=== PATIENT | female | born 1970 | race Caucasian/White ===

== ENCOUNTER 2022-12-25 12:38 | Inpatient (IN) ==
[2022-12-25 13:27] LABS: Hematocrit (blood only) 41.3 % (37.0-47.0); Hemoglobin 13.3 g/dl (12.0-16.0); Mean Corpuscular Hemoglobin 25.9 pg (25.0-34.0); Mean Corpuscular Hgb Conc 32.2 g/dL (32.0-36.0); Mean Corpuscular Volume 80.5 fL (80.0-100.0); Mean Platelet Volume 9.8 fL (9.4-12.4); Platelet Count 481 K/uL (130-400); RDW Coefficient of Variation 14.4 % (11.5-14.5); RDW Standard Deviation 41.8 fL (36.4-46.3); Red Blood Count 5.13 M/uL (4.20-5.40); White Blood Count 13.28 K/ul (4.8-10.8)
[2022-12-25 13:43] LABS: Albumin Globulin Ratio 1.2 (0.9-2); Albumin Level 4.6 gm/dl (3.4-5.0); BUN Creatinine Ratio 10.3 (10-20); Bilirubin,Total 0.5 mg/dl (0.2-1.0); Creatinine Clr Calc Pharmacy 111.3 ml/min; Est GFR (African American) 117.4 ml/min; Est GFR (Non-African American) 101.3 ml/min; Globulin 3.7 gm/dl (2.5-4.0); Magnesium 1.9 mg/dl (1.7-2.4); Potassium 3.9 mmol/L (3.5-5.1); Total Protein 8.3 gm/dl (6.0-8.3)
[2022-12-25 13:49] LABS: Partial Thromboplastin Ratio 1.1; Partial Thromboplastin Time 30.1 Seconds (21.0-31.0); Prothrombin Time 10.2 Seconds (9.0-12.0)
--- NOTE | 2022-12-25 14:21 | Emergency Department Note ---
Impression & Plan Cerebrovascular accident (CVA) of right pontine structure ED Provider Note NAME: VÍCTOR NARAYAN AGE: 52 SEX: F : 1970 ARRIVES VIA: Walk-In INFORMANT: Patient, ED PROVIDER(S): Osmany Calderón DO CHIEF COMPLAINT: Strokelike symptoms HPI: The patient is a 52-year-old female with a history of diabetes as well as hypertension who presented to the emergency department for an evaluation of strokelike symptoms. The patient started having symptoms on Thursday of this week. She initially started noticing difficulty speaking with slurred speech but then difficulty using her left upper extremity. The patient denies having any headache or vomiting. She denies having any abdominal pain. The patient states that she has no history of stroke. She does have a history of diabetes and hypertension. She also notes that she has been having trouble ambulating. Her speech has returned to normal but she continues to have trouble with her le ft upper extremity especially fine motor. She went to see her family doctor today and was sent for an MRI. After she had the MRI she was told to come to the emergency department to have the results. ROS: See above HPI for pertinent positives & negatives. A total of 10 systems reviewed and were otherwise negative. PAST MEDICAL HISTORY: See Below PAST SURGICAL HISTORY: See Below FAMILY HISTORY: See Below SOCIAL HISTORY: See Below HOME MEDICATIONS: See Below ALLERGIES: See Below VITALS: See Below PHYSICAL EXAMINATION: GENERAL: Patient is awake alert in no acute distress patient is resting comfortably and showing no signs of anxiety EYES: The conjunctivae are clear. The pupils are round and reactive. EARS, NOSE, MOUTH AND THROAT: The nose is without any evidence of any deformity. Mucous membranes are moist. Tongue is midline. NECK: The neck is nontender and supple. RESPIRATORY: Normal respiratory effort is noted there is no evidence of wheezing rhonchi or rales CARDIOVASCULAR: Regular rate and rhythm noted there no murmurs rubs or gallops normal S1 normal S2. GASTROINTESTINAL: The abdomen is soft. Abdomen is nontender. MUSCULOSKELETAL/EXTREMITIES: There is no evidence of gross deformity full range of motion is noted in the hips and shoulders. SKIN: There is no obvious evidence of any rash. There are no petechiae, pallor or cyanosis noted. NEUROLOGIC: Patient is awake alert and oriented x3. Speech was pressured but clear. There is no facial droop. Lath Hand strength was diminished in the left upper extremity. The patient is able to hold each leg off the bed for greater than 5 seconds. MEDICAL DECISION MAKING: The patient is a 52-year-old female who has a history of diabetes and hypertension who presented to the emergency department for an evaluation of strokelike symptoms. The patient has been experiencing symptoms over the last 3 days. The patient states his symptoms were worse at onset but continued today so she went to see her family doctor. When she was seen by her family doctor she was sent for an emergency MRI at [facility]. The patient was told by the radiologist to go directly to the emergency department to receive her results. The patient's history and physical exam do appear to be consistent with a stroke which was confirmed on MRI of the brain. I was able to review the patient's MRI report. I discussed the patient's laboratory and radiographic studies with her. She was in sinus rhythm. Her blood pressure was acceptable given her subacute ischemic stroke. I discussed her condition with the on-call [facility] hospitalist group. Triage Nursing notes reviewed. Prior medical records reviewed Vital Signs: reviewed and remarkable for elevated blood pressure. Differential diagnosis: Infection, dehydration, metabolic abnormality, hypo/hyperglycemia, electrolyte disturbance, anemia, hypoxia, cardiac sources, intracerebral event, toxicologic, neurologic, as well as other pathologies. ER treatment provided: See below Diagnostics interpreted by me: ECG: EKG was obtained in the emergency department. My interpretation is sinus tachycardia 106 bpm. There is no ectopy. LVH was noted by voltage criteria. This was compared to a tracing from March 24, 2016. No changes were noted. Cardiac Monitoring: An order was placed for continuous cardiac monitoring. The monitor shows a rate of 95 bpm with sinus rhythm. Laboratory studies: As stated above and show below. Imaging studies: See below. Radiographic imaging was reviewed by myself Consultation(s): I discussed this case with Il[facility] hutton [facility] Past Med/Surg History Medical History Diabetes Hypertension Social History Smoking Status: Never smoker Feels Safe at Home: Yes Allergies Allergies Allergy/AdvReac Type Severity Reaction Status Date / Time latex Allergy Unknown skin Verified 03/14/16 04:32 irritation Home Meds Previous Rx's Medication Instructions Recorded LISINOPRIL (PRINIVIL) 1 tab PO DAILY 30 days #30 tabs 03/14/16 Results & Data (ED) Vital Signs Vital Signs - 24 hr 12/25/22 12:42 12/25/22 14:04 Temperature 37.5 C Temperature Source Skin Pulse Rate 118 H Pulse Rate [Apical] 95 H Pulse Rhythm Regular Pulse Strength Normal Respiratory Rate 20 22 Respiratory Effort / Characteristics Non-Labored Spontaneous Respiratory Depth Normal Normal Respiratory Pattern Regular Blood Pressure 208/127 H Blood Pressure [Left Arm] 158/96 H Blood Pressure Mean 154 Blood Pressure Mean [Left Arm] 116 Pulse Oximetry 96 97 Oxygen Delivery Method Room Air Room Air Sepsis Recent Fever Within 48 Hours No Sepsis New/Unexplained Change in Mental Status N/A Sepsis Action Taken by Nursing No Action Required Home Medications Current Medication List: was personally reviewed by me Laboratory Data Attestation: I reviewed the patient's lab results. 12/25/22 12:54 12/25/22 12:54 Lab Results 12/25/22 12/25/22 12/25/22 Range/Units 12:54 12:54 12:54 WBC 13.28 H (4.8-10.8) K/ul RBC 5.13 (4.20-5.40) M/uL Hgb 13.3 (12.0-16.0) g/dl Hct 41.3 (37.0-47.0) % MCV 80.5 (80.0-100.0) fL MCH 25.9 (25.0-34.0) pg MCHC 32.2 (32.0-36.0) g/dL RDW Std Deviation 41.8 (36.4-46.3) fL RDW Coeff of [place] 14.4 (11.5-14.5) % Plt Count 481 H (130-400) K/uL MPV 9.8 (9.4-12.4) fL PT 10.2 (9.0-12.0) Seconds INR 1.0 (0.9-1.1) APTT 30.1 (21.0-31.0) Seconds PTT Ratio 1.1 Sodium 138 (136-145) mmol/L Potassium 3.9 (3.5-5.1) mmol/L Chloride 104 (98-107) mmol/L Carbon Dioxide 25 (21-32) mmol/L Anion Gap 9 (3-11) BUN 7 (6-23) mg/dl Creatinine 0.68 (0.6-1.2) mg/dl Est Cr Clr Drug Dosing 111.3 ml/min Est GFR ( Amer) 117.4 ml/min Est GFR (Non-Af Amer) 101.3 ml/min BUN/Creatinine Ratio 10.3 (10-20) Glucose 128 H (70-99(Fasting)) mg/dl Calcium 10.0 (8.5-10.1) mg/dl Magnesium 1.9 (1.7-2.4) mg/dl Total Bilirubin 0.5 (0.2-1.0) mg/dl AST 17 (13-39) U/L ALT 21 (7-52) U/L Alkaline Phosphatase 86 (34-104) U/L Total Protein 8.3 (6.0-8.3) gm/dl Albumin 4.6 (3.4-5.0) gm/dl Globulin 3.7 (2.5-4.0) gm/dl Albumin/Globulin Ratio 1.2 (0.9-2) Imaging Data Attestation: I personally reviewed and interpreted this imaging study as follows: My Impression: 1 view chest x-ray was obtained in the emergency department. My interpretation is cardiomegaly, no definite Lutrate, no free air, final report pending. Discharge Plan Visit Data Chief Complaint: Abnormal Labs/Diagnostic Testing Stated Complaint: REF BY DOC,ABNORMAL MRI ED Provider: Osmany Calderón Discharge Problem: Cerebrovascular accident (CVA) of right pontine structure Patient Disposition: Being Evaluated by Hospitalist Forms Stand Alone Forms: My [facility] Prescriptions Prescriptions: No Action LISINOPRIL (PRINIVIL) 10 MG tablet 1 tab PO DAILY 30 Days Qty: 30 5RF Referrals Referrals: PCP,NO [Physician] -
[2022-12-25 14:43] LABS: C Reactive Protein 2.74 mg/dl (0-0.5)
--- NOTE | 2022-12-25 14:53 | History & Physical Report ---
Date of Service December 25, 2022 Assessment & Plan (1) Cerebrovascular accident (CVA) of right pontine structure: Plan: Admit to telemetry Patient presenting by referral of PCP after outpatient MRI showed small acute/early subacute infarcts in the right aspect of the mason. Continues to have mild left arm and hand weakness. Risk factors: DM, HTN, obesity Check CTA head and neck Echo Patient has been taking ASA 81 mg daily for the past few years, therefore will add Plavix 75 mg if no bleeding on CTA. Also start atorvastatin 40 mg. Obtain hypercoagulable work-up given patient's age. Also note mild thrombocytosis, platelet 481K PT/OT Neurology consult, Dr. Forde notified via tiger text (2) Leukocytosis: Plan: WBC 13 K, CRP 2.7, ESR 46 May be reactive, no signs of infection at this time Continue to trend (3) Hypertension: Plan: Continue amlodipine and losartan, make adjustments as needed (4) Diabetes: Plan: Hgb A1c 6.3 06/2022 Hold oral agents and utilize NovoLog per protocol while hospitalized DVT PROPHYLAXIS SCDs I spent a total of 75 minutes coordinating, documenting, and providing care for this patient excluding time spent in the performance of separately billed services. This included personally reviewing all current laboratories and imaging studies, medication reconciliation, outpatient chart review, and discussion with specialists. History of Present Illness Chief Complaint: Left Arm Weakness, sent by PCP for stroke Primary Care Provider: Antonette Zimmerman PA-C 52 year old female with PMH HTN, DM type II, and other problems listed below who presents to the ED by referral PCP for evaluation of left arm weakness and after outpatient MRI showed acute/early subacute CVA. History obtained from patient by Dr. Bowman and my personal review of outpatient PCP records. Patient reports that 4 days ago she developed slurred speech, dizziness, left arm weakness. Reports that her coworkers noted that her speech was not normal. Patient reports slurred speech and dizziness has resolved however mild left arm and hand weakness persist. Patient was seen by her PCP today and had an outpatient MRI that showed small acute/early subacute infarcts in the right aspect of the mason. Patient sent to the ED for further evaluation. Patient denies chest pain and shortness of breath. No syncopal events. Denies any other recent illness, fevers, chills. No abdominal pain, nausea, vomiting, diarrhea. Denies urinary symptoms. In the ED, patient is hemodynamically stable and labs are unremarkable. Allergies Allergy/AdvReac Type Severity Reaction Status Date / Time latex Allergy Unknown skin Verified 03/14/16 04:32 irritation Home Medications Medication Instructions Recorded Confirmed Type amlodipine 5 mg tablet 5 mg PO DAILY 12/25/22 12/25/22 History aspirin 81 mg tablet 81 mg PO DAILY 12/25/22 12/25/22 History losartan 100 mg tablet 100 mg PO DAILY 12/25/22 12/25/22 History metformin 500 mg tablet,extended 1,000 mg PO BID 12/25/22 12/25/22 History release 24 hr semaglutide 2 mg/dose (8 mg/3 mL) 2 mg subcut WK 12/25/22 12/25/22 History subcutaneous pen injector (Ozempic) Past Med/Surg History Medical History Diabetes Hypertension Surgical History History of Family History Father Heart disease Mother Lymphoma Social History Smoking Status: Never smoker Hx Alcohol Use: Yes Hx Substance Use: No Preferred Language: Romanian Communication Ability: Effective Professor In Family Studies Required: No Beliefs That Will Affect Care: None Current Living Situation: Spouse Current Living Situation Comment: daughter Feels Safe at Home: Yes Assistive Devices: None Review of Systems Review of Systems: ROS per HPI, all other systems reviewed and negative Physical Exam Physical Exam: please refer to Dr. Bowman's addendum for physical exam Results & Data Results & Data Vital Signs (Past 12 Hours) Vital Signs Temp Pulse Pulse Resp BP BP Pulse Ox 12/25/22 14:04 95 H 22 158/96 H 97 12/25/22 12:42 37.5 C 118 H 20 208/127 H 96 O2 Del Method 12/25/22 14:04 Room Air 12/25/22 12:42 Room Air Laboratory Results Short CBC 12/25/22 Range/Units 12:54 WBC 13.28 H (4.8-10.8) K/ul Hgb 13.3 (12.0-16.0) g/dl Hct 41.3 (37.0-47.0) % Plt Count 481 H (130-400) K/uL BMP 12/25/22 12:54 Sodium 138 Potassium 3.9 Chloride 104 Carbon Dioxide 25 BUN 7 Creatinine 0.68 Glucose 128 H Calcium 10.0 Liver Function 12/25/22 Range/Units 12:54 Total Bilirubin 0.5 (0.2-1.0) mg/dl AST 17 (13-39) U/L ALT 21 (7-52) U/L Alkaline Phosphatase 86 (34-104) U/L Albumin 4.6 (3.4-5.0) gm/dl Diagnostic Findings Chest X-Ray 12/25/22 12:46 XR chest 1V portable CLINICAL HISTORY: stroke alert COMPARISON STUDY: No previous studies for comparison. FINDINGS: Lung volumes are normal. Lungs are clear. There is no pneumothorax or pleural effusion. Cardiac size is normal. Mediastinal contours are normal. There is no evidence for pulmonary edema. IMPRESSION: No acute cardiopulmonary findings. ACT 112: Negative or not required by law. Electronically signed by: Matthew Rosario M.D. 12/25/2022 3:11 PM Code Status & VTE Plan VTE Prophylaxis Plan VTE Prophylaxis will be ordered: Yes Supervising Physician Co-Signing Physician Notes Patient is a 52-year-old female with history of hypertension, diabetes mellitus and other medical problems presents with history of left upper extremity weakness since Thursday. She had an outpatient MRI brain suggestive of subacute pontine CVA. Patient also states having slurred speech, dizziness which curre ntly resolved. Please review HPI for complete details of presentation. I personally reviewed imaging studies, blood work and EKG. Blood work suggestive of leukocytosis 13.28 K, platelet count 481 K, ESR 46, hypercoagulable work-up pending, glucose 128, CRP 2.74. Outpatient MRI reviewed. Physical Exam: Vitals signs as noted above General Appearance:Obese, no apparent distress Head: normocephalic, Atraumatic Eyes: normal inspection, EOMI Neck: supple, Trachea midline Respiratory/Chest: Normal breath sounds, CTA, No accessory muscle use Cardiovascular: S1, S2, No murmur Abdomen/GI:Soft, Non tender, Bowel sounds present Extremities/Musculoskeletal:normal inspection, no edema Neurologic/Psych:AAOX3, Left UE 4/5, Decreased extension of fingers on Left Skin: normal color, warm Patient is admitted for management of subacute pontine CVA. Will obtain CTA head and neck to monitor for any progression Echo, lipid panel, A1c Continue aspirin Added Plavix, Lipitor Neurochecks Neurology consulted Can continue antihypertensives as likely subacute CVA. Leukocytosis Likely reactive No obvious source of infection Monitor I personally reviewed the record. Patient is interviewed and examined at bedside. Patient's care is coordinated with Ilana Rasmussen SAND MIXER OPERATOR. Please refer to the documentation above for details of patient's presentation and for discussion of other issues.
--- NOTE | 2022-12-25 15:12 | XRay Report ---
XR chest 1V portable CLINICAL HISTORY: stroke alert COMPARISON STUDY: No previous studies for comparison. FINDINGS: Lung volumes are normal. Lungs are clear. There is no pneumothorax or pleural effusion. Car diac size is normal. Mediastinal contours are normal. There is no evidence for pulmonary edema. IMPRESSION: No acute cardiopulmonary findings. ACT 112: Negative or not required by law. Electronically signed by: Matthew Rosario M.D. 12/25/2022 3:11 PM
[2022-12-25] MEDS ORDERED: DEXTROSE 50% 50 ML SYRINGE IV PRN (16:14)
[2022-12-25] MEDS ORDERED: ACETAMINOPHEN 325 MG TAB PO PRN (16:14)
[2022-12-25] MEDS ORDERED: GLUCOSE 40% GEL 15 GM TUBE PO PRN (16:14)
[2022-12-25] MEDS ORDERED: GLUCOSE 10 TAB/TUBE PO PRN (16:14)
[2022-12-25] MEDS ORDERED: PHARMACIST DISCHARGE MED REC CONSULT PRN (16:14)
[2022-12-25] MEDS ORDERED: GLUCAGON FOR INJ 1 MG VIAL SQ PRN (16:14)
[2022-12-25] MEDS ORDERED: CARBOHYDRATES FOR HYPOGLYCEMIA PO PRN (16:14)
[2022-12-25] MEDS: ATORVASTATIN 40 MG TAB PO SCH (16:40)
--- NOTE | 2022-12-25 17:18 | Neurology Consultation ---
Date of Consultation December 25, 2022 Assessment & Plan (1) Ischemic stroke: Plan Neurology Consultation Assessment & Plan: Impression:pt with subacute pontine ischemic stroke with left arm dysmetria, otherwise stable and neurological intact. Recommendations: * Standard stroke work up as planned * Antiplatelet therapy: * DAPT: start for pts with ABCD2 score 4 or higher. ASA 81mg daily and Plavix 75mg daily. Continue DAPT for 21 days if found small vessel disease only or continue for 90 days if found to have intracranial large artery atherosclerosis.After DAPT, can continue single antiplatelet therapy. * Images: TTE with bubble. pending CTA head/neck. * no need for permissive HTN as her symptoms started 4 days ago. * If noted for large intracranial vessel stenosis, slow reduction of BP and allowing permissive HTN next 7-10 days. * Long-term SBP goal less than 130. * Plenty of hydration including IV fluid (use isotonic solution) . Avoid hypovolemia and hypotension. * Initiate DVT prevention therapy * Avoid hypoglycemia, serum glucose goal during hospitalization: 140-180 * Long-term HgA1c goal less than 7 * Start statin if not on it.Long-term LDL goal of less than 70. * Head of bed up 30 degree if possible. * Stroke education * Smoke cessation education if a smoker. * Telemetry monitoring.Please order MCOT (mobile cardiac outpatient telemetry) orICM (insertable library monitor) if never had senior care cardiac monitoring previously. And if found to have atrial flutter or fibrillation, should consider anticoagulation therapy if no contraindication. * Physical/occupational therapy and speech path evaluations. * otherwise, not much add at this point. if TTE and CTA head/neck comes back normal, pt likely can be discharged. Chart reviewed I have spent more than 50% educating patient about potential diagnosis and neurological evaluation and coordinating care with patient's treatment team. Total time spent: 80 min (this includes chart review and documentation) Dr. Denton Forde MD [facility] Neurology Chief Complaint: stroke HISTORY OF PRESENT ILLNESS:pt with 4 days ago having left arm dysmetria and weakness that is now much improved. had mri from outside facility and noted for small ischemic stroke on mason. pt currently doing well. Admission/Initial HPI:52 year old female with PMH HTN, DM type II, and other problems listed below who presents to the ED by referral PCP for evaluation of left arm weakness and after outpatient MRI showed acute/early subacute CVA. History obtained from patient by Dr. Bowman and my personal review of outpatient PCP records. Patient reports that 4 days ago she developed slurred speech, dizziness, left arm weakness. Reports that her coworkers noted that her speech was not normal. Patient reports slurred speech and dizziness has resolved however mild left arm and hand weakness persist. Patient was seen by her PCP today and had an outpatient MRI that showed small acute/early subacute infarcts in the right aspect of the mason. Patient sent to the ED for further evaluation. Patient denies chest pain and shortness of breath. No syncopal events. Denies any other recent illness, fevers, chills. No abdominal pain, nausea, vomiting, diarrhea. Denies urinary symptoms. In the ED, patient is hemodynamically stable and labs are unremarkable. Past Medical History: See chart Meds: See chart Social & Family History: See chart Review of Systems: Per HPI. No headache, eye, ear nose, throat problems; no wheezing, No orthopnea, no abdominal pain or vomiting, No pain in the body, no psychiatric,endocrine, hematological or cardiac complaints except as noted above. Physical Exam: General Statement: not in acute distress, well appearing Mental Status: Oriented fully. Normal comprehension, no neglect, Fluent speech, logical thought process, Visuo-spatial function was intact. No apraxia, no L/R confusion. Cranial Nerves: Visual escobar were full.PERRL.Extraocular movements were full with no nystagmus. Normal pursuit.Facial movements were symmetric.Hearing was grossly intact.Palate elevated symmetrically.Sternocleidomastoid and trapezius muscles were 5/5 and equal bilaterally.Tongue extended midline. Motor: Strength was 5/5 and equal bilaterally. Normal tone.There were no abnormal movements or pronator drift. Sensory:intact to touch bilaterally Coordination: moderate dysmetria of left arm. Reflexes: toes down b/l History of Present Illness Attending Physician: Carlos Bowman MD Allergies Allergy/AdvReac Type Severity Reaction Status Date / Time latex Allergy Unknown skin Verified 03/14/16 04:32 irritation Home Medications Medication Instructions Recorded Confirmed Type amlodipine 5 mg tablet 5 mg PO DAILY 12/25/22 12/25/22 History aspirin 81 mg tablet 81 mg PO DAILY 12/25/22 12/25/22 History losartan 100 mg tablet 100 mg PO DAILY 12/25/22 12/25/22 History metformin 500 mg tablet,extended 1,000 mg PO BID 12/25/22 12/25/22 History release 24 hr semaglutide 2 mg/dose (8 mg/3 mL) 2 mg subcut WK 12/25/22 12/25/22 History subcutaneous pen injector (Ozempic) Patient History Medical History Diabetes Hypertension Surgical History History of Family History Father Heart disease Mother Lymphoma Social History Smoking Status: Never smoker Hx Alcohol Use: Yes Hx Substance Use: No Preferred Language: Maldivian Communication Ability: Effective Supervisor Public Health Nursing Required: No Beliefs That Will Affect Care: None Current Living Situation: Spouse Current Living Situation Comment: daughter Feels Safe at Home: Yes Assistive Devices: None Results & Data Vital Signs (Past 12 Hours) Vital Signs Temp Pulse Pulse Resp BP BP Pulse Ox 12/25/22 16:24 36.7 C 93 H 17 154/90 H 96 12/25/22 15:45 93 H 12/25/22 14:04 95 H 22 158/96 H 97 12/25/22 12:42 37.5 C 118 H 20 208/127 H 96 O2 Del Method 12/25/22 16:24 Room Air 12/25/22 15:45 12/25/22 14:04 Room Air 12/25/22 12:42 Room Air
[2022-12-25] MEDS: INSULIN ASPART PER UNIT CHARGE SC SCH ×2 (17:38→20:53)
[2022-12-25] MEDS ORDERED: OPTIRAY 320 500ml IV ONE (19:07)
--- NOTE | 2022-12-25 19:36 | CT Scan Report ---
CT ANGIOGRAPHY OF THE NECK WITH CONTRAST CLINICAL HISTORY: CVA COMPARISON STUDY: No previous studies for comparison. Technique: CT angiography of the carotid and vertebral arteries was obtained using [employer] and 3D rec onstruction on an independent workstation. NASCET criteria was utilized. Automated exposure control was utilized for the study. A dose lowering technique was utilized adhering to the principles of ALA RA. Findings: Visualized portions of the apices are unremarkable. There is no cervical lymphadenopathy. T here is no cervical spine fracture. The bilateral common carotid, cervical internal carotid or verteb robasilar patent. There is no stenosis or dissection within the major vessels of the neck. No aneurysm within the neck. There is minimal noncalcified plaque within bilateral carotid bifurcatio ns. CTA of the head will be reported separately. IMPRESSION: No stenosis or dissection within the bilateral common carotid, cervical internal carotid or vertebral arteries. ACT 112: Negative or not required by law. Electronically signed by: Matthew Rosario M.D. 12/25/2022 7:35 PM
--- NOTE | 2022-12-25 19:46 | CT Scan Report ---
CTA ANGIOGRAPHY OF THE HEAD CLINICAL HISTORY: CVA COMPARISON STUDY: No previous studies for comparison. TECHNIQUE: Helical axial images of the head were obtained following uneventful intravenous administr ation of 112 cc of Optiray. Sagittal and coronal reconstructions were viewed as well as maximal inten sity projections on an independent 3-D workstation. Automated exposure control was utilized for the study. A dose lowering technique was utilized adhering to the principles of ALARA. CT DOSE: 582.76 mGy.cm FINDINGS: The ventricular system is normal. The basal cisterns are patent. No acute hemorrhage is reva ntified although sensitivity is diminished on this contrast enhanced exam. The bilateral M1, M2, A1 a nd A2 segments are patent. There is moderate plaque within the right cavernous carotid without stenos is. No intracranial aneurysm. There is moderate stenosis of the intracranial portion of the left vert ebral artery. An apparent linear filling defect within the left vertebral artery on axial image 46 of 259 is noted. This may be artifactual. The basilar artery is patent. The intracranial portion of the right vertebral artery is patent. There is severe stenosis of the right P2 segment shown on axial im age 93 of 259. There is mild to moderate stenosis of the left P2 segment. No definite central vessel occlusion is present. IMPRESSION: 1. Severe stenosis of the right P2 segment. Moderate stenosis of the intracranial portion of the left vertebral artery. No large vessel occlusion. 2. Apparent linear filling defect within the intracranial portion of the left vertebral artery. This is likely artifactual. A short segment dissection could appear similar but is considered less likely. A fenestration is also within the differential. ACT 112: Negative or not required by law. Electronically signed by: Matthew Rosario M.D. 12/25/2022 7:44 PM
[2022-12-25] MEDS ORDERED: CLOPIDOGREL BISULFATE 75 MG TAB PO ONE (21:23)
[2022-12-26 07:29] LABS: Basophils # (auto) 0.07 K/uL (0-0.2); Basophils % (auto) 0.6 %; Eosinophils # (auto) 0.16 K/uL (0-0.50); Eosinophils % (auto) 1.4 %; Hematocrit (blood only) 38.4 % (37.0-47.0); Hemoglobin 12.4 g/dl (12.0-16.0); Immature Granulocytes # (auto) 0.03 K/uL (0.01-0.20); Immature Granulocytes % (auto) 0.3 %; Lymphocytes # (auto) 1.91 K/uL (1.2-3.4); Mean Corpuscular Hgb Conc 32.3 g/dL (32.0-36.0); Mean Corpuscular Volume 80.5 fL (80.0-100.0); Mean Platelet Volume 9.8 fL (9.4-12.4); Monocytes # (auto) 0.84 K/uL (0.11-0.59); Monocytes % (auto) 7.5 %; Neutrophils # (auto) 8.24 K/uL (1.40-6.50); Neutrophils % (auto) 73.2 %; Platelet Count 405 K/uL (130-400); RDW Coefficient of Variation 14.5 % (11.5-14.5); RDW Standard Deviation 42.7 fL (36.4-46.3); Red Blood Count 4.77 M/uL (4.20-5.40); White Blood Count 11.25 K/ul (4.8-10.8)
[2022-12-26 07:35] LABS: BUN Creatinine Ratio 13.2 (10-20); Calcium 8.8 mg/dl (8.5-10.1); Chol HDL Ratio 3.6 (0-5); Creatinine Clr Calc Pharmacy 111.2 ml/min; Est GFR (African American) 117.4 ml/min; Est GFR (Non-African American) 101.3 ml/min; Potassium 3.9 mmol/L (3.5-5.1)
[2022-12-26 07:49] LABS: Estimated Average Glucose 137 mg/dl; Hemoglobin A1C 6.4 % (4.5-5.6)
[2022-12-26] MEDS: ATORVASTATIN 40 MG TAB PO SCH (08:19)
[2022-12-26] MEDS: INSULIN ASPART PER UNIT CHARGE SC SCH ×3 (08:22→16:53)
[2022-12-26] MEDS ORDERED: amLODIPine BESYLATE 5 MG TAB PO SCH (09:00)
[2022-12-26] MEDS ORDERED: CLOPIDOGREL BISULFATE 75 MG TAB PO SCH (09:00)
[2022-12-26] MEDS ORDERED: ASPIRIN 81 MG ECTAB PO SCH (09:00)
[2022-12-26] MEDS ORDERED: LOSARTAN POTASSIUM 50 MG TAB PO SCH (09:00)
--- NOTE | 2022-12-26 10:29 | Pharmacy Report ---
- Date of Service December 26, 2022 - Pharmacy CVA/TIA Medication Review Medications to Prevent Stroke handout has been added to the patients discharge packet. Antiplatelet(s) * Aspirin 81 mg PO daily + clopidogrel 75 mg PO daily x 21-90 days pending outpatient follow-up, then monotherapy Cholesterol * High intensity statin: atorvastatin 40 mg daily DVT Prophylaxis * SCD knee Therapeutic Anticoagulation * No history of Afib/Aflutter noted Type 2 Diabetes * Patient has T2DM and patient is prescribed semaglutide
--- NOTE | 2022-12-26 15:53 | Hospitalist Progress Note ---
Date of Service December 26, 2022 Assessment & Plan (1) Cerebrovascular accident (CVA) of right pontine structure: Plan: Admit to telemetry Patient presenting by referral of PCP after outpatient MRI showed small acute/early subacute infarcts in the right aspect of the mason. Continues to have mild left arm and hand weakness. Risk factors: DM, HTN, obesity Check CTA head and neck- Head CTA-1. Severe stenosis of the right P2 segment. Moderate stenosis of the intracranial portion of the left vertebral artery. No large vessel occlusion. 2. Apparent linear filling defect within the intracranial portion of the left vertebral artery. This is likely artifactual. A short segment dissection could appear similar but is considered less likely. A fenestration is also within the differential. CTA of the neck-unremarkable Echo-LV systolic function is normal, EF 65 to 70%, injection of contrast demonstrated no in atrial shunt and no significant valvular pathology, Patient has been taking ASA 81 mg daily for the past few years, therefore will add Plavix 75 mg if no bleeding on CTA. Also start atorvastatin 40 mg. Obtain hypercoagulable work-up given patient's age. Also note mild thrombocytosis, platelet 481K PT/OT-has been ambulating in the room without any difficulties Neurology consult, Dr. Forde notified via [employer] text-appreciate input and recommendation (2) Leukocytosis: Plan: WBC 13 K, CRP 2.7, ESR 46 May be reactive, no signs of infection at this time Continue to trend (3) Hypertension: Plan: Continue amlodipine and losartan, make adjustments as needed Blood pressure is controlled (4) Diabetes: Plan: Hgb A1c 6.3 06/2022 Hold oral agents and utilize NovoLog per protocol while hospitalized DVT PROPHYLAXIS Subcu heparin Admission and Anticipated Discharge Date Admission Date: December 25, 2022 Subjective 12/26/2022 The patient was seen and examined in telemetry unit She has been feeling much better and complains to have minimal tingling involving the left upper extremity Denies any problem with speech and/or swallowing Been ambulating without any problem Review of Systems Review of Systems: All systems reviewed and are unremarkable except as noted below Neurologic: No neurodeficit on examination Physical Exam Physical Exam: Sitting on a chair without any acute distress Constitutional: well developed, well nourished and + obese; not ill appearing Eyes: PERRL, conjunctivae normal, anicteric sclerae ENMT: external ear and nose normal, oropharynx normal Neck: trachea midline, no thyromegaly Respiratory: no respiratory distress Auscultation: lungs clear to auscultation bilaterally Cardiovascular: Rate/Rhythm: regular rate and regular rhythm; not tachycardic Heart Sounds: normal S1 and normal S2; no murmur Extremities: + edema (Trace edema bilaterally) Gastrointestinal (Abdomen): Inspection/Auscultation: normal bowel sounds; abdomen not distended Percussion/Palpation: abdomen soft; abdomen nontender Musculoskeletal: No acute arthritis involving any joint Neurologic: normal touch/pain/proprioception and moves all extremities; no focal motor deficits Alert, awake and oriented x3, no focal sensory or no motor deficit appreciated Psychiatric: A+Ox3, euthymic affect Lymphatic: no cervical or axillary lymphadenopathy Results & Data Results & Data Vital Signs (Past 12 Hours) Vital Signs Temp Pulse Pulse Resp BP Pulse Ox O2 Del Method 12/26/22 15:16 36.7 C 90 18 154/86 H 95 Room Air 12/26/22 11:17 36.8 C 59 L 16 168/82 H 95 Room Air 12/26/22 08:06 36.5 C 64 17 160/95 H 95 Room Air 12/26/22 07:48 85 12/26/22 07:48 Room Air Laboratory Results Short CBC 12/26/22 Range/Units 06:42 WBC 11.25 H (4.8-10.8) K/ul Hgb 12.4 (12.0-16.0) g/dl Hct 38.4 (37.0-47.0) % Plt Count 405 H (130-400) K/uL [facility] 12/26/22 06:42 Sodium 138 Potassium 3.9 Chloride 104 Carbon Dioxide 25 BUN 9 Creatinine 0.68 Glucose 123 H Calcium 8.8 Medications Administered Current Inpatient Medications Acetaminophen (Acetaminophen 325 Mg Tab) 650 mg PO Q4H PRN PRN Reason: Pain or Fever Stop: 01/24/23 16:13 Amlodipine Besylate (Amlodipine Besylate 5 Mg Tab) 5 mg PO DAILY [facility] Stop: 01/25/23 08:59 Last Admin: 12/26/22 08:19 Dose: 5 mg Aspirin (Aspirin 81 Mg Ectab) 81 mg PO DAILY [facility] Stop: 01/25/23 08:59 Last Admin: 12/26/22 08:19 Dose: 81 mg Atorvastatin Calcium (Atorvastatin 40 Mg Tab) 40 mg PO QAM [facility] Stop: 01/24/23 16:13 Last Admin: 12/26/22 08:19 Dose: 40 mg Clopidogrel Bisulfate (Clopidogrel Bisulfate 75 Mg Tab) 75 mg PO QAM [facility] Stop: 01/25/23 08:59 Last Admin: 12/26/22 08:19 Dose: 75 mg Dextrose (Dextrose 50% 50 Ml Syringe) 25 - 50 ml IV UD PRN; Protocol PRN Reason: Hypoglycemia Protocol Stop: 01/24/23 16:13 Glucagon (Glucagon For Inj 1 Mg Vial) 1 mg SQ UD PRN; Protocol PRN Reason: Hypoglycemia Protocol Stop: 01/24/23 16:13 Glucose (Glucose 10 Tab/Tube) 4 - 8 tab PO UD PRN; Protocol PRN Reason: Hypoglycemia Treatment Stop: 01/24/23 16:13 Glucose (Glucose 40% Gel 15 Gm Tube) 15 - 30 gm PO UD PRN; Protocol PRN Reason: Hypoglycemia Protocol Stop: 01/24/23 16:13 Insulin Aspart (Insulin Aspart Per Unit) 0 units SC ACHS [facility] Stop: 01/24/23 16:29 Last Admin: 12/26/22 11:57 Dose: 2 units Losartan Potassium (Losartan Potassium 50 Mg Tab) 100 mg PO DAILY [facility] Stop: 01/25/23 08:59 Last Admin: 12/26/22 08:19 Dose: 100 mg Miscellaneous (Carbohydrates For Hypoglycemia ) 15 - 30 gm PO UD PRN PRN Reason: Hypoglycemia Protocol Stop: 01/24/23 16:13 Miscellaneous Information (Pharmacist Discharge Med Rec Consult) 1 each N/A UD PRN PRN Reason: Consult Stop: 01/24/23 16:13
[2022-12-26] MEDS ORDERED: STROKE PATIENT DISCHARGE STA (17:09)
--- NOTE | 2022-12-26 17:14 | Discharge Summary ---
Date of Service December 26, 2022 Admission HPI Per Admitting Provider 52 year old female with PMH HTN, DM type II, and other problems listed below who presents to the ED by referral PCP for evaluation of left arm weakness and after outpatient MRI showed acute/early subacute CVA. History obtained from patient by Dr. Bowman and my personal review of outpatient PCP records. Patient reports that 4 days ago she developed slurred speech, dizziness, left arm weakness. Reports that her coworkers noted that her speech was not normal. Patient reports slurred speech and dizziness has resolved however mild left arm and hand weakness persist. Patient was seen by her PCP today and had an outpatient MRI that showed small acute/early subacute infarcts in the right aspect of the mason. Patient sent to the ED for further evaluation. Patient denies chest pain and shortness of breath. No syncopal events. Denies any other recent illness, fevers, chills. No abdominal pain, nausea, vomiting, diarrhea. Denies urinary symptoms. In the ED, patient is hemodynamically stable and labs are u nremarkable. Admission Exam Per Admitting Provider Vitals signs as noted above General Appearance:Obese, no apparent distress Head: normocephalic, Atraumatic Eyes: normal inspection, EOMI Neck: supple, Trachea midline Respiratory/Chest: Normal breath sounds, CTA, No accessory muscle use Cardiovascular: S1, S2, No murmur Abdomen/GI:Soft, Non tender, Bowel sounds present Extremities/Musculoskeletal:normal inspection, no edema Neurologic/Psych:AAOX3, Left UE 4/5, Decreased extension of fingers on Left Skin: normal color, warm Principal Diagnosis Acute/early subacute infarcts in the right aspect of the mason, severe stenosis of the right P2 segment, hypertension, type 2 diabetes Discharge Exam Sitting on a chair without any acute distress Constitutional well developed, well nourished and + obese; not ill appearing Eyes PERRL, conjunctivae normal, anicteric sclerae ENMT external ear and nose normal, oropharynx normal Neck trachea midline, no thyromegaly Respiratory no respiratory distress Auscultation: lungs clear to auscultation bilaterally Cardiovascular Rate/Rhythm: regular rate and regular rhythm; not tachycardic Heart Sounds: normal S1 and normal S2; no murmur Extremities: + edema (Trace edema bilaterally) Gastrointestinal (Abdomen) Inspection/Auscultation: normal bowel sounds; abdomen not distended Percussion/Palpation: abdomen soft; abdomen nontender Neurologic normal touch/pain/proprioception and moves all extremities; no focal motor def icits Psychiatric A+Ox3, euthymic affect Lymphatic no cervical or axillary lymphadenopathy Discharge Data Allergies Allergy/AdvReac Type Severity Reaction Status Date / Time latex Allergy Unknown skin Verified 03/14/16 04:32 irritation Consultations 12/25/22 14:26 ED Decision to Admit Stat 12/25/22 16:14 Consult Neurology Routine Ordered Studies 12/25/22 15:06 CTA head w con [CT angio head w con] Urgent CTA neck with con [CT angio neck with con] Urgent Hospital Course (1) Cerebrovascular accident (CVA) of right pontine structure: Admit to telemetry Patient presenting by referral of PCP after outpatient MRI showed small acute/early subacute infarcts in the right aspect of the mason. Continues to have mild left arm and hand weakness. Risk factors: DM, HTN, obesity Check CTA head and neck- Head CTA-1. Severe stenosis of the right P2 segment. Moderate stenosis of the intracranial portion of the left vertebral artery. No large vessel occlusion. 2. Apparent linear filling defect within the intracranial portion of the left vertebral artery. This is likely artifactual. A short segment dissection could appear similar but is considered less likely. A fenestration is also within the differential. CTA of the neck-unremarkable Echo-LV systolic function is normal, EF 65 to 70%, injection of contrast demonstrated no in atrial shunt and no significant valvular pathology, Patient has been taking ASA 81 mg daily for the past few years, therefore will add Plavix 75 mg if no bleeding on CTA. Also start atorvastatin 40 mg. Obtain hypercoagulable work-up given patient's age. Also note mild thrombocytosis, platelet 481K PT/OT-has been ambulating in the room without any difficulties Neurology consult, Dr. Forde notified via [employer] text-appreciate input and recommendation (2) Leukocytosis: WBC 13 K, CRP 2.7, ESR 46 May be reactive, no signs of infection at this time Continue to trend (3) Hypertension: Continue amlodipine and losartan, make adjustments as needed Blood pressure is controlled (4) Diabetes: Hgb A1c 6.3 06/2022 Hold oral agents and utilize NovoLog per protocol while hospitalized DVT PROPHYLAXIS Subcu heparin Total Time Total Time Spent Total Time Spent (In Minutes): 45 minutes Discharge Plan Discharge Items Patient Disposition: Home - Self-Care Reason For Visit: stroke Discharge Diagnosis: Acute/early subacute infarcts in the right aspect of the mason, severe stenosis of the right P2 segment, hypertension, type 2 diabetes Condition on Discharge: Good Activity: Resume your previous activity Non-emergency contact: Primary Care Provider Call non-emergency contact if: you have any medication questions and your symptoms worsen Follow-up/Referrals: Antonette Zimmerman, HEIDY [Primary Care Provider] - (Will call you on Thursday with an appointment with your PCP ) Diet: Carb Consistent or DM2 Addtl Attending Provider Instructions: Please take precautions to avoid falls You will need to take aspirin 81 mg and Plavix 75 mg for 90 days and then Plavix only to continue You will need to go to your doctor's office for a Holter monitor sometime next week and you will be called for that Please take your medications as advised and keep appointment with your healthcare providers Pending Studies at Discharge: Yes Studies:: Hypercoagulable work-up Stand-Alone Forms: My [facility], Smoking Cessation, Medications to Prevent Stroke Medications and DC Order Prescriptions: New atorvastatin 40 mg Tablet 40 mg PO QAM 30 Days Qty: 30 0RF clopidogrel 75 mg Tablet 75 mg PO QAM 30 Days Qty: 30 0RF Continued amlodipine 5 mg tablet 5 mg PO DAILY aspirin 81 mg Tablet 81 mg PO DAILY losartan 100 mg tablet 100 mg PO DAILY metformin 500 mg tablet extended release 24 hr 1,000 mg PO BID Ozempic 2 mg/dose (8 mg/3 mL) pen injector 2 mg SUBCUT WK Discharge Orders: Discharge Order (Routine); Ordered 12/26/22 Ordered By: Dorian Ghosh/Other Patient Handouts: Managing Type 2 Diabetes Admission Data Admit Date/Time: 12/25/22 14:44 Attending Provider: Dorian Pemberton Admit Provider: Carlos Bowman Primary Care Provider: Antonette Zimmerman Other Providers: Carlos Bowman ; Denton Forde
--- NOTE | 2022-12-27 00:41 | Electrocardiogram Report ---
Test Reason : Blood Pressure : / mmHG Vent. Rate : 106 BPM Atrial Rate : 106 BPM P-R Int : 170 ms QRS Dur : 074 ms QT Int : 330 ms P-R-T Axes : 046 000 056 degrees QTc Int : 438 ms Poor data quality, interpretation may be adversely affected Sinus tachycardia Minimal voltage criteria for LVH, may be normal variant Borderline ECG When compared with ECG of 14-MAR-2016 04:43, No significant change was found Confirmed by Abraham Carney ([id number]) on 12/27/2022 12:41:00 AM Referred By: Antonette Zimmerman Confirmed By:Abraham Carney
[2023-01-01 20:03] LABS: Factor 5 Mutation NEGATIVE
[2023-01-02 01:47] LABS: B2 Glycoprotein IgM <2.0 U/mL (<20.0); PTT LA Screen 42 sec (<=40)
[2023-01-02 08:50] LABS: Lupus Hex Phase (Rflxdonotord) Negative (Negative)
== END 2022-12-26 17:54 | disposition home or self-care (01) | DRG 65 ==
LOC: ED 12:38 → SUATTDRO 14:44 → 2S 14:44